=== PATIENT | female | born 1975 | race Caucasian/White ===

== ENCOUNTER 2025-03-20 19:40 | Observation (INO) | payer BC, SELFPAY ==
[2025-03-20 12:12] VITALS: BP 152/97
--- NOTE | 2025-03-20 15:37 | ED.GENMED ---
History of Present Illness
General
Chief Complaint: Back Pain
Time Seen by Provider: 03/20/25 15:09
History of Present Illness
History of Present Illness:
50-year-old female presents to the emergency department for evaluation of right-sided low back pain radiating to the right posterior thigh for the past several days. Began in mild fashion after helping to move her daughter into college, pain was
gradually worsening but 2 days ago abruptly worsened, she is describing significant muscle spasms that are preventing her from being able to walk comfortably. No loss of bladder or bowel function. No lower extremity paresthesias. Denies any
recent fevers or chills
Review of Systems
Review of Systems
Allergies reviewed?: Yes
All Other Systems: ROS reviewed and negative except as documented in HPI and ROS
Phy Exam
Physical Exam
Physical Exam:
GEN: Well appearing, NAD, WDWN
HEENT: Oral mucosa moist, no scleral icterus
Cardiac: Regular rate
Lung: No respiratory distress, no tachypnea
MSK: No gross deformity or injuries. Tenderness to palpation of the right paraspinous lumbar musculature, no midline bony tenderness. Patient is able to perform straight leg raise however pain limits her range of motion, passive right hip range of
motion is normal without pain. Right lower extremity strength is 5 out of 5 in all saenz and sensation is intact
Skin: Good color, no pallor or jaundice, no rashes
Neuro: AO x3, moves all extremities freely
Psych: Calm, cooperative
Course
Orders/Labs/Results
Orders:
Orders
03/20/25 15:36
Diazepam [Valium] 5 mg PO NOW STA
Ketorolac [Toradol] 30 mg IM NOW STA
03/20/25 17:00
Acetaminophen 1000MG/100Ml [Ofirmev] 1,000 mg in 100 ml IV ONCE
Acetaminophen IV Indication:: ED Narcotic Naive Pt-ONCE
CR Lumbar Spine 2 Or 3 Views Urgent
Comment:
Reason For Exam: low back pain
03/20/25 17:28
Basic Metabolic Panel Urgent
Complete Blood Count/No Diff Urgent
03/20/25 18:22
Dexamethasone Sod Phosphate [Decadron] 10 mg IV NOW STA
03/20/25 19:08
diazePAM [Valium Injection] 2 mg IV NOW STA
03/20/25 17:28
03/20/25 17:28
Vital Signs
Initial and Last Documented VS:
Initial Vital Signs
Temp Pulse Resp BP Pulse Ox
98.4 F 80 18 152/97 98
03/20/25 12:12 03/20/25 12:12 03/20/25 12:12 03/20/25 12:12 03/20/25 12:12
Last Documented Vital Signs
Temp Pulse Resp BP Pulse Ox
98.4 F 80 18 152/97 98
03/20/25 12:12 03/20/25 12:12 03/20/25 12:12 03/20/25 12:12 03/20/25 15:38
MDM/Problems Addressed
MDM/Problems Addressed:
Unfortunately patient's pain is quite severe despite numerous rounds of IV and oral medications, she is unable to adequately support her own weight when ambulating thus we will admit for further pain control. She has no signs or symptoms of spinal
cord compression warranting urgent MRI at this time
*Pulse Oximetry
SaO2: 98
Oxygen Mode of Delivery: Room air
Patient hypoxic: no
*Critical Care Note
Total Time (30-74mins, 75-104mins- exclusive of procedures): Not Applicable
ED Attending Note
-
Portions of this chart may have been created with voice recognition software.� Occasional wrong word or��sound alike� substitutions may have occurred due to the inherent limitations of voice recognition software.
Discharge Plan
Departure
Patient Disposition: Admit
Date of Disposition: 03/20/25
Time of Disposition: 19:09
Admit to: Med/Surg
Presentation/result/management discussed w/ accepting MD/DO: Hospitalist
Discharge Problem:
Acute lumbar radiculopathy, Intractable low back pain
Referrals:
Shakila Reaves DO [Family Provider, Internal Medicine]
Interventions
Interventions:
*Risk Screen - Suicide Last Done: 03/20/25 12:12
*Neglect/Abuse Screening Last Done: 03/20/25 12:12
ED-Musculoskeletal Assessment Last Done: 03/20/25 14:40
Discharge Date and Time
Print Language: SRI LANKAN
[2025-03-20] MEDS: VALIUM 5 MG PO (15:48)
[2025-03-20] MEDS: TORADOL 30 MG IM (15:48)
[2025-03-20] MEDS: OFIRMEV 100 IV (17:29)
[2025-03-20 17:48] LABS: Hematocrit 39.3 % (37.0-47.0); Hemoglobin 14.0 g/dL (12.0-16.0); Mean Corp Hgb Conc. 35.6 g/dL (33.0-37.0); Mean Corpuscular Volume 86.8 fL (81.0-99.0); Platelet Count 192 10^3/uL (130-400); Red Cell Dist. Width 12.3 % (11.5-14.5)
[2025-03-20 18:13] LABS: Blood Urea Nitrogen 16 mg/dl (7-17); Calcium 10.0 mg/dl (8.4-10.2); Carbon Dioxide 29 mmol/L (22-30); Glucose 86 mg/dl (70-99); eGFR > 60.00
[2025-03-20 18:19] LABS: Chloride 102 mmol/L (98-107); Potassium 3.8 mmol/L (3.5-5.1); Sodium 138 mmol/L (135-145)
[2025-03-20] MEDS: DECADRON 10 MG IV (19:10)
--- NOTE | 2025-03-20 19:11 | HPS.HSE ---
Family Physician
-
Family Physician: Shakila Reaves
Chief Complaint
-
Back pain
History of Present Illness
This is a 50-year-old female with past medical history of hypertension presenting to the emergency department with right-sided low back pain radiating to the right posterior thigh for the past few days.
Onset unclear but appears began progressively after helping family member move into college. Worsening about 2 days ago abruptly. She denies any known trauma. She describes significant muscle spasms preventing her from walking comfortably.
She denies any numbness tingling. She denies any weakness of her lower extremities. She denies any bladder or bowel dysfunction. She denies any urinary symptoms. She has not had any fevers or chills. She denies any prior episodes.
In the emergency department she was afebrile, blood pressure was 152/90 with a pulse of 80 satting 98% on room air.
CBC completely unremarkable, electrolytes BUN/creatinine were completely normal.
She has lumbar x-ray which shows moderate degenerative changes of the lumbosacral spine most notable in the L3-4 and L4-5 segments.
Medical History
Past Medical History
Past Medical History: Reports HTN
Past Surgical History: Reports Other (Hemorrhoidectomy)
Social History
Tobacco: Non-smoker
Alcohol: Occasional
Drug: None
Personal:
Living: With Family
Employment: Employed
Family History
Family History: Not pertinent
Allergies / Home Medications
Allergies reflects when Allergies were last updated in [facility].
Home Medications with original date entered in [facility]
Allergy/Medication List:
Allergies
Allergy/AdvReac Type Severity Reaction Status Date / Time
No Known Allergies Allergy Unverified 03/20/25 15:45
Home Medications
amlodipine 5 mg tablet 5 mg PO DAILY 03/20/25
hydrochlorothiazide 25 mg tablet 25 mg PO DAILY 03/20/25
losartan 100 mg tablet 100 mg PO DAILY 03/20/25
Review of Systems
-
Constitutional: Reports No Symptoms
EENT: Reports No Symptoms
Respiratory: Reports No Symptoms
Cardiac: Reports No Symptoms
Abdomen/GI: Reports No Symptoms
: Reports No Symptoms
Musculoskeletal: Reports Other (back pain)
Skin: Reports No Symptoms
Neurological: Reports No Symptoms
Endocrine: Reports No Symptoms
Hematologic/Lymphatic: Reports No Symptoms
Psych: Reports No Symptoms
Physical Exam
Vital Signs
Vital Signs
Temp Pulse Resp BP Pulse Ox
98.4 F 80 18 152/97 98
03/20/25 12:12 03/20/25 12:12 03/20/25 12:12 03/20/25 12:12 03/20/25 15:38
Physical Exam
General: Well Developed, Well Nourished and No Apparent Distress
HEENT: NormoCephalic, Moist mucous membranes and Atraumatic
Respiratory: Clear
Cardiac: S1/S2 and Regular Rhythm; No Murmur or Rub
GI: Soft, Non Tender, Non Distended and Normal Bowel Sounds; No Organomegaly
Rectal: Deferred by Provider
Musculoskeletal: No Clubbing, No Cyanosis and No Edema
Skin: No Rash
Neuro: Nonfocal/grossly intact
Laboratory Results
-
03/20/25 17:28
03/20/25 17:28
Data Reviewed
-
Diagnostic Radiology: Report Reviewed by me
Lab Data: Labs Reviewed by me
Old Records: Reviewed
Impression/Plan
-
IMPRESSION:
50-year-old female with past medical history significant hypertension presenting to the emergency department with acute lower back pain that has been intractable. Onset of symptoms several days ago after helping family members move. She reports
severe muscle spasms that prevents her from bearing weight especially on the right side. She has no focal neurological deficits. Denies any bilateral bowel symptoms. She has no radicular signs such as numbness weakness or tingling. Straight leg
raise was negative.
PLAN:
Low back pain likely associated with severe muscle spasms
- Admit to MedSurg observation
- Lidocaine patch
- Agree with continuing Toradol, Medrol Dosepak
- Valium for severe spasm
- Tizanidine for moderate spasm
- PT consult in a.m.
Hypertension
- Continue losartan hydrochlorothiazide amlodipine
DVT prophylaxis�SCDs
CODE STATUS�full code
[2025-03-20] MEDS: VALIUM INJECTION 2 MG IV (19:46)
[2025-03-20 21:45] VITALS: BP 115/80; BMI 37.5
--- NOTE | 2025-03-20 21:51 | PTCARENOTE ---
Patient arrived from the ED via stretcher. Patient ambulated into the room with assistance from staff and walker. Reports right lower back pain which radiates down the right leg at times. No reports of numbness or tingling. AAOx3, VSS. Patient
oriented to the room, updated on medications, call curtis is within reach.
[2025-03-20] MEDS: ZANAFLEX 2 MG PO (22:12)
[2025-03-20 23:48] VITALS: BP 146/75
[2025-03-21] MEDS: VALIUM INJECTION 2 MG IV (02:51)
[2025-03-21 08:00] VITALS: BP 117/75
--- NOTE | 2025-03-21 08:42 | W.PN.HOSP.TC ---
Today's Communication/Plan
-
Pain control and PT eval
Assessment / Plan
Assessment / Plan
Physical exam:
General: Well Developed, Well Nourished and Mild Apparent Distress when moving
HEENT: Normocephalic, Atraumatic and Moist Mucous Membranes
Respiratory: Clear to Auscultation; Negative Wheezes, Rales or Rhonchi
Cardiac: Regular Rhythm and S1/S2
GI: Soft, Nontender and Nondistended
Musculoskeletal: Tenderness right lumbar area. No midline tenderness. Decreased range of motion of the back. Raise leg test negative. No Clubbing, No Cyanosis and No Edema
Neuro: Awake, Alert and Oriented, no neurological deficit
Psych: Calm
A/P:
Acute lower back pain:
Add scheduled Tylenol, Toradol, lidocaine patch
Start oral steroids with Medrol pack
Continue tizanidine
Seen x-ray of the back
Change Valium to bedtime as needed
PT eval
Monitor clinical response to current adjustments
Hypertension
Appears stable
Continue losartan hydrochlorothiazide amlodipine
DVT prophylaxis�SCDs
CODE STATUS�full code
Time spent 35 minutes
Anticipated Discharge: 24 - 48 hours
Subjective/Interval History
-
Date of Service: March 21, 2025
Patient still has some back pain and some radiation to her right lower extremity not addressed but with doing activities although overall she has noted some improvement. She noted she was doing more hiking and helping relatives more into college
and many activities over the last couple weeks [employer]. No fevers or chills. No bowel bladder incontinence. No limbs or perineal paresthesias.
Objective Data
-
Vital Signs:
Vital Signs
Temp Pulse Resp BP Pulse Ox
97.4 F 66 18 117/75 93
03/21/25 08:00 03/21/25 08:00 03/21/25 08:00 03/21/25 08:00 03/21/25 08:00
I&O
03/20/25 03/21/25 03/22/25
06:59 06:59 06:59
Intake Total 480 / 480
Balance 480 / 480
[2025-03-21] MEDS: ORETIC 25 MG PO (09:03)
[2025-03-21] MEDS: COZAAR 100 MG PO (09:03)
[2025-03-21] MEDS: ZANAFLEX 2 MG PO ×3 (09:03→21:31)
[2025-03-21] MEDS: NORVASC 5 MG PO (09:03)
[2025-03-21] MEDS: MEDROL 24 MG PO (13:16)
[2025-03-21] MEDS: MIRALAX 17 GRAMS PO (13:16)
[2025-03-21] MEDS: TYLENOL 1000 MG PO ×2 (13:55→21:31)
[2025-03-21] MEDS: TORADOL 15 MG IV ×2 (13:55→19:35)
[2025-03-21 14:57] VITALS: BP 131/72; PULSE 78; O2SAT 97
[2025-03-21 15:55] VITALS: BP 143/74
[2025-03-21] MEDS: COLACE PO (19:35)
[2025-03-21 23:23] VITALS: BP 126/69
[2025-03-22] MEDS: TORADOL IV ×3 (03:22→08:55)
[2025-03-22] MEDS: TORADOL 15 MG IV (03:32)
[2025-03-22] MEDS: TYLENOL 1000 MG PO ×2 (07:06→13:25)
[2025-03-22 07:15] VITALS: BP 132/72
--- NOTE | 2025-03-22 07:49 | W.PN.HOSP.TC ---
Today's Communication/Plan
-
discharge
Assessment / Plan
Assessment / Plan
Physical exam:
General: Well Developed, Well Nourished and Mild Apparent Distress when moving
HEENT: Normocephalic, Atraumatic and Moist Mucous Membranes
Respiratory: Clear to Auscultation; Negative Wheezes, Rales or Rhonchi
Cardiac: Regular Rhythm and S1/S2
GI: Soft, Nontender and Nondistended
Musculoskeletal: Tenderness right lumbar area. No midline tenderness. Decreased range of motion of the back. Raise leg test negative. No Clubbing, No Cyanosis and No Edema
Neuro: Awake, Alert and Oriented, no neurological deficit
Psych: Calm
A/P: 50F hx HTN Obesity here for acute lower back pain.
Acute lower back pain, suspect lumbar muscle strain vs disc herniation
Lumbar Degenerative Disc Disease
treated with scheduled Tylenol, Toradol, medrol dose taper, and tizanidine
Lumbar X-ray appreciated no fracture
Valium to bedtime as needed (has not required)
PT eval appreciated outpt therapy recommended
Since symptomatically improved
Hypertension
Appears stable
Continue losartan hydrochlorothiazide amlodipine
DVT prophylaxis�SCDs
CODE STATUS�full code
Medically stable for discharge home with outpatient follow up recommendations.
Discussed with patient and patient's Raymond
Total Time Preparing Discharge ___40____ minutes including examination of the patient, summary of the hospital stay, instructions for continuing care to all relevant caregivers; and preparation of discharge records, prescriptions, and referral
forms if necessary.
Anticipated Discharge: Today
Subjective/Interval History
-
Date of Service: March 22, 2025
Overall reports feeling well. Pain significantly improved. Denies new acute issues. Eager to go home
Objective Data
-
Vital Signs:
Vital Signs
Temp Pulse Resp BP Pulse Ox
98.5 F 68 16 126/69 94
08/31/25 23:23 03/21/25 23:23 03/21/25 23:23 03/21/25 23:23 03/21/25 23:23
I&O
03/21/25 03/22/25 03/23/25
06:59 06:59 06:59
Intake Total 480 / 480 0 / 1860
Balance 480 / 480 0 / 186
[2025-03-22] MEDS: MEDROL 20 MG PO (08:41)
[2025-03-22] MEDS: ORETIC 25 MG PO (08:43)
[2025-03-22] MEDS: COLACE 100 MG PO (08:43)
[2025-03-22] MEDS: MIRALAX 17 GRAMS PO (08:43)
[2025-03-22] MEDS: COZAAR 100 MG PO (08:44)
[2025-03-22] MEDS: NORVASC 5 MG PO (08:44)
[2025-03-22] MEDS: ZANAFLEX 2 MG PO (08:44)
[2025-03-22] MEDS: PROTONIX 40 MG PO (09:15)
[2025-03-22] MEDS: MOTRIN 400 MG PO (09:30)
--- NOTE | 2025-03-22 13:25 | W.DCSUMMARY ---
Discharge Summary
Discharge Data
Date of Admission: 03/20/25
Date of Discharge: 03/22/25
-
Pending Results: No
Discharge Plan
-
Patient Disposition: Home (Routine Discharge)
Discharge Diagnosis/Procedures: Acute Lower Back Pain, Lumbar muscle strain vs Disc Herniation
Lumbar Degenerative Disc Disease
Condition: Fair
Diet: Regular
Activity: As tolerated and No strenuous activity
Additional Activity: no strenuous activity (including long commutes) for 1 week following discharge. then advance activity as tolerated.
Driving Restrictions: As prior to admission
Bathing Restrictions: None
Other Services: PT
Activity Restrictions/Additional Instructions:
Follow up with primary care provider in 1 week of discharge and Orthopedic extracorporeal circulation specialist in 2-4 weeks of discharge.
Lidocaine patches and as needed Tylenol, Ibuprofen, and Zanaflex have been prescribed for acute lower back pain.
Steroid taper has also been prescribed:
16 mg (4 tabs) day 1, then 12 mg (3 tabs) day 2, then 8 mg (2 tabs) day 3, then 4 mg (1 tab) day 4, then stop.
Protonix has also been prescribed for GI prophylaxis while on steroids and ibuprofen- ok to stop when off both.
Please take medications as prescribed/recommended and follow up with primary care provider and/or other healthcare provider involved in your care for refills and/or further adjustment to your medication regimen as necessary.
Referrals:
Shakila Reaves DO [Family Provider, Internal Medicine] - in one week
Luis Miguel Gandara MD [Active, Orthopedics] - in two to four weeks
Prescriptions:
New
lidocaine 4 % Adhesive Patch,Medicated
1 patch topical DAILY Qty: 10 0RF
Rx Instructions:
Lower back pain
acetaminophen [Tylenol Extra Strength] 500 mg Tablet
1,000 mg PO Q8H PRN (Reason: Pain) Qty: 60 0RF
pantoprazole 40 mg Tablet,Delayed Release (Dr/Ec)
40 mg PO DAILY Qty: 7 0RF
ibuprofen 400 mg Tablet
400 mg PO Q6HPRN PRN (Reason: moderate severe pain) Qty: 28 0RF
tizanidine 2 mg Tablet
2 mg PO TID PRN (Reason: muscle spasticity) Qty: 21 0RF
methylprednisolone [Medrol] 4 mg tablet
4 mg PO DIRECTED Qty: 10 0RF
Rx Instructions:
16 mg day 1, 12 mg day 2, 8 mg day 3, 4 mg day 4, then stop
Continued
amlodipine 5 mg tablet
5 mg PO DAILY
hydrochlorothiazide 25 mg tablet
25 mg PO DAILY
losartan 100 mg tablet
100 mg PO DAILY
Discharge Orders:
Discharge Patient (As Directed); Ordered 03/22/25
Ordered By: Marj Harrison
Discharge Date and Time
Print Language: MONTENEGRIN
== END 2025-03-22 14:23 | disposition home or self-care (01) ==
LOC: 4 EAST ACU 19:40
PROVIDERS: Physician Assistant; ADMITTING PHYSICIAN Internal Medicine; ATTENDING PHYSICIAN Internal Medicine; EMERGENCY PHYSICIAN Emergency Medicine; FAMILY PHYSICIAN Internal Medicine
DX: M51.16 Intervertebral disc disorders with radiculopathy, lumbar region (principal); M54.50 Low back pain, unspecified; M62.838 Other muscle spasm; M47.26 Other spondylosis with radiculopathy, lumbar region; I10 Essential (primary) hypertension; E66.9 Obesity, unspecified; Z68.37 Body mass index [BMI] 37.0-37.9, adult; Z79.899 Other long term (current) drug therapy
CPT/HCPCS: 72100; 80048; 85027; 96372; 96374; 96375; 97116; 97530; 99284; G0378